=== PATIENT | female | born 1990 | race Caucasian/White ===

== ENCOUNTER 2018-12-25 10:13 | Emergency (ER) | payer OTHER ==
[~2018-12-25] VITALS: Ht 160 cm; Wt 82.0 kg
[~2018-12-25 10:13] MED LIST: CALC600T5 PO; IBUP-1542 PO; PREN1TAB62 PO
[2018-12-25 10:17] VITALS: BP 135/80; PULSE 115; RESP 18; Ht 160 cm; Wt 82.0 kg
[2018-12-25] MEDS ORDERED: ACETAMINOPHEN 325 MG TAB PO ONE (10:30)
[2018-12-25] MEDS ORDERED: IBUPROFEN 600 MG TAB PO ONE (10:30)
[2018-12-25] MEDS ORDERED: ONDANSETRON (ODT) 4 MG TAB ODT STA (10:30)
[2018-12-25] MEDS ORDERED: IBUP-1542 PO (11:19)
[2018-12-25] MEDS ORDERED: OSEL75CA23 PO (11:19)
[2018-12-25] MEDS ORDERED: ONDA8TAB14 PO (11:19)
--- NOTE | 2018-12-25 11:23 | ERD ---
ER Documentation Chief Complaint Chief Complaint vomiting,diarrhea and fever x 1 day HPI 28-year-old female presents with cough, vomiting diarrhea since yesterday. Vomit is nonbilious nonbloody. Vomit is usually posttussive. She denies abdominal pain, urinary complaints. Patient did not get a flu shot this year. ROS All systems reviewed and are negative except as per history of present illness. Medications Home Meds Active Scripts Ondansetron (Ondansetron Odt) 8 Mg Tab.rapdis, 8 MG PO Q6H PRN for NAUSEA AND/OR VOMITING, #5 TAB Prov:ABRIL SANTANA MD 12/25/18 Ibuprofen* (Motrin*) 600 Mg Tab, 600 MG PO Q6, #20 TAB Prov:ABRIL SANTANA MD 12/25/18 Oseltamivir Phosphate* (Tamiflu*) 75 Mg Capsule, 75 MG PO BID for 5 Days, CAP Prov:ABRIL SANTANA MD 12/25/18 Ibuprofen* (Ibuprofen*) 600 Mg Tablet, 600 MG PO Q6, #20 TAB 0 Refills Prov:MARY WOLFE MD 10/09/16 Reported Medications Calcium Carbonate (CALCIUM) 600 Mg Tablet, 600 MG PO, TAB 10/04/16 Vit-Iron Fumarate-FA ( Vitamin Tablet) 1 Each Tablet, 1 TAB PO DAILY, TAB 09/14/16 Allergies Allergies: Coded Allergies: No Known Allergies (Verified Allergy, Mild, 10/07/16) PMhx/Soc History of Surgery: Yes (OVAR[facility] CYST) Anesthesia Reaction: No Hx Neurological Disorder: No Hx Respiratory Disorders: No Hx Cardiac Disorders: No Hx Psychiatric Problems: No Hx Miscellaneous Medical Probl: No Hx Alcohol Use: No Hx Substance Use: No Hx Tobacco Use: No Smoking Status: Never smoker FmHx Family History: No diabetes, No coronary disease, No other Physical Exam Vitals Vital Signs Date Temp Pulse Resp B/P (MAP) Pulse Ox O2 O2 Flow FiO2 Time Delivery Rate 12/25/18 103.4 10:40 12/25/18 103.4 10:40 12/25/18 103.4 115 18 135/80 97 10:17 (98) Physical Exam Const: No acute distress Head: Atraumatic Eyes: Normal Conjunctiva ENT: Normal External Ears, Nose and Mouth. TMs and oropharynx normal. Neck: Full range of motion. No meningismus. Resp: Clear to auscultation bilaterally coarse cough without rales, wheezing or retractions. Cardio: Regular rate and rhythm, no murmurs Abd: Soft, non tender, non distended. Normal bowel sounds Skin: No petechiae or rashes Back: No midline or flank tenderness Ext: No cyanosis, or edema Neur: Awake and alert Psych: Normal Mood and Affect Results 24 hrs Laboratory Tests Test 12/25/18 10:49 12/25/18 10:50 Bedside Urine pH (LAB) 6.5 Bedside Urine Protein (LAB) 1+ Bedside Urine Glucose (UA) Negative Bedside Urine Ketones (LAB) Negative Bedside Urine Blood 1+ Bedside Urine Nitrite (LAB) Negative Bedside Urine Leukocyte Esterase (L 1+ POC Beta HCG, Qualitative NEGATIVE Current Medications Medications Dose Sig/Nimesh Start Time Status Last (Trade) Ordered Route PRN Stop Time Admin Dose Reason Admin 650 mg ONCE ONCE 12/25/18 DC 12/25/18 Acetaminophen PO 10:30 10:40 (Tylenol 12/25/18 10:32 Tab) Ondansetron 8 mg ONCE STAT 12/25/18 DC 12/25/18 HCl (Zofran ODT 10:30 10:40 Odt) 12/25/18 10:32 Ibuprofen 600 mg ONCE ONCE 12/25/18 DC 12/25/18 (Motrin) PO 10:30 10:40 12/25/18 10:32 Procedures/MDM Patient was given Zofran, Tylenol and Motrin. Patient resents with fever, URI symptoms, posttussive vomiting and body aches since yesterday. Given the short duration will treat empirically for what appears to be likely influenza or viral URI. She will be treated with Tamiflu, Zofran, fever control, primary care follow-up and return precautions. She has no signs of hypoxemia, respiratory distress. The patient was stable with no new complaints during the ER course. Clinically, there is no current evidence to suggest meningitis, sepsis, acute abdomen, pneumonia, stroke, acute coronary syndrome, pulmonary embolism, aortic dissection or any other emergent condition appearing to require further evaluation or hospitalization. Patient counseled regarding my diagnostic impression and care plan. Prior to discharge all questions answered. Pt agrees with treatment plan and understands strict return precautions. Pt is instructed to follow up with primary care provider within 24-48 hours. Precautionary instructions provided including instructions to return to the ER if not improving or for any worsening or changing symptoms or concerns. Departure Diagnosis: Primary Impression: Fever Fever type: unspecified Qualified Codes: R50.9 - Fever, unspecified Additional Impressions: URI, acute Vomiting Vomiting type: unspecified Vomiting Intractability: unspecified Nausea presence: unspecified Qualified Codes: R11.10 - Vomiting, unspecified Condition: Stable Patient Instructions: Fever Control (Adult), Influenza (Adult), Vomiting (6Y- Adult) Additional Instructions: Likely influenza which usually last 3-5 days. Drink plenty of fluids at home. Recheck for new or worsening symptoms or with primary care doctor. Okay to take Tylenol every 4 hours as well for fever. ABRIL SANTANA MD Dec 25, 2018 11:23
== END 2018-12-25 11:28 | disposition home or self-care (01) ==
LOC: FTE 10:13
DX: J06.9 Acute upper respiratory infection, unspecified (principal)
CPT/HCPCS: 81003; 81025; Z7502; Z7610; 99283

== ENCOUNTER 2019-01-10 10:03 | Emergency (ER) | payer OTHER ==
[~2019-01-10] VITALS: Ht 160 cm; Wt 82.7 kg
[~2019-01-10 10:03] MED LIST changes: +ONDA8TAB14 PO; +OSEL75CA23 PO
[2019-01-10 10:12] VITALS: Ht 160 cm; Wt 82.7 kg
[2019-01-10] MEDS ORDERED: AZIT250T PO (10:40)
[2019-01-10] MEDS ORDERED: ALBU8.5H8 INH (10:40)
[2019-01-10] MEDS ORDERED: PRED20TA PO (10:40)
--- NOTE | 2019-01-10 10:41 | ERD ---
ER Documentation Chief Complaint Chief Complaint COUGH X 2 WEEKS WITH INTERMITTENT FEVER HPI This is 28-year-old female with a cough for 2 weeks with productive green sputum with off-and-on fever. She has no fever over the past couple of days. She has no shortness of breath she having intermittent wheezing sometimes she states. ROS All systems reviewed and are negative except as per history of present illness. Medications Home Meds Active Scripts Azithromycin* (Zithromax*) 250 Mg Tablet, 250 MG PO .ZPACK DIRECTED, #6 TAB TAKE 500 MG (2 TABS) THE FIRST DAY THEN 250 MG (1 TAB) DAYS 2-5 Prov:DUSTIN STUBBS DO 01/10/19 Prednisone* (Prednisone*) 20 Mg Tab, 60 MG PO DAILY for 5 Days, TAB Prov:DUSTIN STUBBS DO 01/10/19 Albuterol Sulfate* (Proair HFA*) 8.5 Gm Hfa.aer.ad, 2 PUFF INH Q4, #1 INHALER Prov:DUSTIN STUBBS DO 01/10/19 Discontinued Reported Medications Calcium Carbonate (CALCIUM) 600 Mg Tablet, 600 MG PO, TAB 10/04/16 Vit-Iron Fumarate-FA ( Vitamin Tablet) 1 Each Tablet, 1 TAB PO DAILY, TAB 09/14/16 Discontinued Scripts Ondansetron (Ondansetron Odt) 8 Mg Tab.rapdis, 8 MG PO Q6H PRN for NAUSEA AND/OR VOMITING, #5 TAB Prov:ABRIL SANTANA MD 12/25/18 Ibuprofen* (Motrin*) 600 Mg Tab, 600 MG PO Q6, #20 TAB Prov:ABRIL SANTANA MD 12/25/18 Oseltamivir Phosphate* (Tamiflu*) 75 Mg Capsule, 75 MG PO BID for 5 Days, CAP Prov:ABRIL SANTANA MD 12/25/18 Ibuprofen* (Ibuprofen*) 600 Mg Tablet, 600 MG PO Q6, #20 TAB 0 Refills Prov:MARY WOLFE MD 10/09/16 Allergies Allergies: Coded Allergies: No Known Allergies (Verified Allergy, Mild, 10/07/16) PMhx/Soc History of Surgery: Yes ([facility] CYST) Anesthesia Reaction: No Hx Neurological Disorder: No Hx Respiratory Disorders: No Hx Cardiac Disorders: No Hx Psychiatric Problems: No Hx Miscellaneous Medical Probl: No Hx Alcohol Use: No Hx Substance Use: No Hx Tobacco Use: No FmHx Family History: No coronary disease Physical Exam Vitals Vital Signs Date Temp Pulse Resp B/P (MAP) Pulse Ox O2 O2 Flow FiO2 Time Delivery Rate 01/10/19 98.7 72 18 121/76 98 10:12 (91) Physical Exam C const: Well-developed, well-nourished Head: Atraumatic, normocephalic Eyes: Normal Conjunctiva, PERRLA, EOMI, normal sclera, no nystagmus ENT: Normal External Ears, Nose and Mouth, moist mucus membranes. Neck: Full range of motion. No meningismus, no lymphadenopathy. Resp: Clear to auscultation bilaterally, no wheezing, rhonchi, rales Cardio: Regular rate and rhythm, no murmurs, S1 S2 present Abd: Soft, non tender x 4, non distended. Normal bowel sounds, no guarding or rebound, no pulsitile abdominal masses or bruits Skin: No petechiae or rashes, no ecchymosis , no maculopapular rash Back: No midline or flank tenderness Ext: No cyanosis, or edema, FROM x 4, normal inspection, neurovascularly intact x 4 Neur: Awake and alert, STR 5/5 x 4, sensation intact x 4, no focal findings, cerebellum intact Psych: Normal Mood and Affect Procedures/MDM Patient clinically has bronchitis/URI. Will discharge with Zithromax prednisone and albuterol Departure Diagnosis: Primary Impression: Bronchitis Condition: Stable Patient Instructions: Bronchitis With Wheezing (Adult) DUSTIN STUBBS DO Jan 10, 2019 10:41
[2019-01-10 11:21] VITALS: BP 115/88; PULSE 77; RESP 18
== END 2019-01-10 11:22 | disposition home or self-care (01) ==
LOC: E/R 10:03
DX: J40 Bronchitis, not specified as acute or chronic (principal)
CPT/HCPCS: 99283